=== PATIENT | male | born 1990 | race Caucasian/White ===

== ENCOUNTER 2025-06-02 10:32 | Emergency (ER) | payer BC, SELFPAY ==
[2025-06-02 10:44] VITALS: BP 130/81; PULSE 89; RESP 16; TEMP 36.8; O2SAT 100
--- NOTE | 2025-06-02 11:00 | ED.GENADULT ---
HPI - General Adult General Chief complaint: Skin/Abscess/Foreign Body Stated complaint: poison an Time Seen by Provider: 06/02/25 10:37 Source: patient Mode of arrival: ambulatory Limitations: no limitations History of Present Illness HPI narrative: Pt is a 35 y/o male presenting with c/o poison an. He reports contact with plant while helping his friend with yardwork on Saturday. He denies hx of similar rash. 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 No constitutional sx. No additional complaints. Related Data Home Medications ?Medication ?Instructions ?Recorded ?Confirmed ?Last Taken ?Type bupropion HCl 75 mg tablet mg PO 06/02/25 Unknown History testosterone cypionate 200 mg/mL mg 06/02/25 Unknown History intramuscular oil Allergies Allergy/AdvReac Type Severity Reaction Status Date / Time No Known Allergies Allergy Unverified 08/10/16 11:48 Review of Systems Review of Systems: CONSTITUTIONAL: Denies body aches, fever, chills, or sweats. EYES: Denies visual changes, redness, or discharge. ENT: Denies rhinorrhea, congestion, sore throat, or otalgia. CARDIOVASCULAR: Denies chest pain, palpitations, or edema. RESPIRATORY: Denies cough or dyspnea. GASTROINTESTINAL: Denies abdominal pain, nausea, vomiting, or diarrhea. GENITOURINARY: Denies dysuria or hematuria. SKIN: Reports rash, itching MUSCULOSKELETAL: Denies back pain, joint pain, or myalgia. NEUROLOGIC: Denies headache, numbness, tingling, or weakness. PSYCH: Denies depression or anxiety. Exam Narrative: GENERAL: Well-appearing, well-nourished, and in no acute distress. HEAD: Normocephalic, atraumatic. EYES: EOMI. No redness or drainage. Conjunctivae normal. NECK: Normal AROM. Supple. CHEST: No respiratory distress. HEART: Regular rate MUSCULOSKELETAL: No bony tenderness. EXTREMITIES: Normal range of motion. No edema. SKIN: Warm, dry. Erythematous, maculopapular eruption with scattered vesicles, some ruptured, noted to bilateral forearms, anterior aspect of L. upper chest wall, L. side of scalp. No evidence of secondary skin infection. Capillary refill normal. Normal skin turgor. NEURO: No focal deficits. Alert and oriented x3. Gait steady. PSYCH: Normal affect. No signs of depression or anxiety. Course Course Level of Care: Express Care Visit Vital Signs Vital signs: Vital Signs Temperature 98.2 F 06/02/25 10:44 Pulse Rate 89 06/02/25 10:44 Respiratory Rate 16 06/02/25 10:44 Blood Pressure 130/81 06/02/25 10:44 Pulse Oximetry 100 06/02/25 10:44 Temperature 98.2 F 06/02/25 10:44 Pulse Rate 89 06/02/25 10:44 Respiratory Rate 16 06/02/25 10:44 Blood Pressure 130/81 06/02/25 10:44 Pulse Oximetry 100 06/02/25 10:44 Medical Decision Making MDM Narrative Medical decision making narrative: Discussed elevated blood pressure readings with patient and advised daily BP monitoring and f/u with PCP if persisting. Vital Signs Vital Signs: Vital Signs Temperature 98.2 F 06/02/25 10:44 Pulse Rate 89 06/02/25 10:44 Respiratory Rate 16 06/02/25 10:44 Blood Pressure 130/81 06/02/25 10:44 Pulse Oximetry 100 06/02/25 10:44 Temperature 98.2 F 06/02/25 10:44 Pulse Rate 89 06/02/25 10:44 Respiratory Rate 16 06/02/25 10:44 Blood Pressure 130/81 06/02/25 10:44 Pulse Oximetry 100 06/02/25 10:44 Discharge Plan Discharge Clinical Impression: Elevated blood pressure reading in office without diagnosis of hypertension Contact dermatitis Qualifiers: Contact dermatitis type: unspecified Contact dermatitis trigger: non-food plants Qualified Code(s): L25.5 - Unspecified contact dermatitis due to plants, except food Patient Disposition: Home Condition: Stable Instructions: Poison An (ED) Additional Instructions: Go straight to ER should your symptoms become worse or should any new symptoms develop Patient Language: Portuguese Prescriptions: New prednisone 20 mg tablet 20 mg PO DAILY Qty: 18 0RF Rx Instructions: 3 tabs x 3 days then 2tabs x 3 days then 1 tab x 3 days No Action bupropion HCl 75 mg tablet PO testosterone cypionate 200 mg/mL oil Follow-up/Referrals: PHYSICIAN,WEB DESIGN SPECIALIST [Primary Care Provider] - 06/02/25 Time of Disposition: 11:18
[2025-06-02] MEDS: dexAMETHasone SOD PHOS INJ 10 MG/ML 1 ML VIAL IM (11:12)
== END 2025-06-02 11:22 | disposition home or self-care (01) ==
PROVIDERS: Emergency Provider Registered Nurse
DX: R03.0 Elevated blood-pressure reading, without diagnosis of hypertension (principal); L25.5 Unspecified contact dermatitis due to plants, except food
CPT/HCPCS: 96372; 99203; G0463; J1100

== ENCOUNTER 2025-06-14 10:46 | Emergency (ER) | payer BC, SELFPAY ==
[2025-06-14 10:50] VITALS: BP 129/76; PULSE 84; RESP 18; TEMP 36.4; O2SAT 100
--- NOTE | 2025-06-14 11:44 | ED_ITS ---
HPI - URI/Sore Throat General Chief Complaint: Upper Respiratory Infection Stated Complaint: Sore Throat Time Seen by Provider: 06/14/25 11:49 Source: patient, RN notes reviewed and old records reviewed Mode of arrival: ambulatory Limitations: no limitations History of Present Illness HPI Narrative: 35-year-old male presents to the [facility] with a sore, irritated throat since last night. No treatment prior to arrival Related Data Home Medications ?Medication ?Instructions ?Recorded ?Confirmed ?Last Taken ?Type testosterone cypionate 200 mg/mL mg 06/02/25 Unknown History intramuscular oil Allergies Allergy/AdvReac Type Severity Reaction Status Date / Time No Known Allergies Allergy Unverified 06/14/25 11:12 Review of Systems Review of Systems: All systems reviewed & are unremarkable except as noted in HPI and below Constitutional: Constitutional: Reports no additional constitutional complaints ENT: Reports as per HPI and Reports sore throat Cardiovascular: Cardiovascular: Reports no additional cardiovascular complaints, Denies chest pain and Denies dyspnea Respiratory: Respiratory: Reports no additional respiratory complaints, Denies chest congestion, Denies cough and Denies dyspnea Musculoskeletal: Musculoskeletal: Reports no additional musculoskeletal complaints Integumentary/Breasts: Skin/Breast: Reports system reviewed and no additional complaints, except as docu PMFSH Comments At the time of my signature, I reviewed and agree with the nursing past medical, surgical, social, and family history. There is no relevant family history pertinent to the patient complaint. Exam Const: General: cooperative, healthy appearing, comfortable, no acute distress, well developed, alert and well nourished Nutritional Appearance: well nourished Orientation/consciousness: patient oriented x3 Limitations: no limitations HENMT: Head: normal to inspection Ears: hearing grossly normal bilaterally, external ears normal, TM's normal bilaterally, EAC's normal, mastoids normal and no periauricular adenopathy Face/Nose/Sinus: Normal external nose present Mouth: Yes Normal oral and palatal mucosa present, Yes lip normal, Yes tongue normal and Yes moist mucous membranes Throat: posterior oropharynx normal, uvula midline and no uvular edema Eyes: General: appearance normal, both eyes and all related structures Alignment and Position: alignment normal Neck: Neck: normal visual inspection, full ROM, no lymphadenopathy and no meningeal signs Chest: Chest palpation & inspection: normal inspection of the chest Resp: Effort & Inspection: normal respiratory effort and able to speak in complete sentences Auscultation: clear to auscultation bilaterally, no crackles, no rales, no rhonchi and no wheezes Cardio: Rate: regular rate Skin: General skin exam: normal color and no rashes or lesions noted Neuro: General: patient oriented x3, gait normal, moves all extremities and no meningeal signs Cognition (Neuro): normal cognition Speech: normal speech Gait exam (Neuro): Normal gait present Extrem: General: normal to inspection, full ROM, capillary refill normal and normal gait Psych: Appearance: grossly normal and well kempt Mental Status: mental status grossly normal Speech and movement: Normal speech and movement present and Clear speech present Affect: normal affect Attitude: cooperative Course Course Level of Care: Express Care Visit Vital Signs Vital signs: Vital Signs Temperature 97.6 F 06/14/25 10:50 Pulse Rate 84 06/14/25 10:50 Respiratory Rate 18 06/14/25 10:50 Blood Pressure 129/76 06/14/25 10:50 Pulse Oximetry 100 06/14/25 10:50 Oxygen Delivery Room Air 06/14/25 10:50 Temperature 97.6 F 06/14/25 10:50 Pulse Rate 84 06/14/25 10:50 Respiratory Rate 18 06/14/25 10:50 Blood Pressure 129/76 06/14/25 10:50 Pulse Oximetry 100 06/14/25 10:50 Oxygen Delivery Room Air 06/14/25 10:50 Reviewed MDM - URI/Sore Throat MDM Narrative Medical decision making narrative: Patient sitting exam room. Patient is nontoxic, vitals stable. Patient presents with 1 day history of a sore throat. Strep is negative, will culture No acute findings noted on exam. Patient is appropriate for outpatient treatment with close follow-up Discharge instructions reviewed with patient, as well as provided in writing per nursing staff. The instructions also include specific and strict return/GO TO THE ER as well as f/u information. All questions have been answered, and the patient deny any further questions with discharge and discharge plan. Some parts of this dictation were generated by voice recognition software and may contain typographical and/or grammatical inaccuracies. Differential Diagnosis Differential diagnosis: Likely upper respiratory infection, otitis media, sinusitis, viral infection, bronchitis, influenza and pharyngitis Lab Data Labs: Lab Results 06/14/25 Range/Units 11:58 POC Grp A Strep Screen Negative (Negative) Reviewed Critical Care Time Critical Care Time Critical Care Time: No Discharge Plan Discharge Clinical Impression: PND (post-nasal drip) Pharyngitis Qualifiers: Pharyngitis/tonsillitis etiology: unspecified etiology Qualified Code(s): J02.9 - Acute pharyngitis, unspecified Patient Disposition: Home Condition: Stable Instructions: Antibiotic Form, Pharyngitis (ED), Postnasal Drip (DC) Additional Instructions: Your rapid strep swab was negative today at [facility]. A throat culture will be sent to the laboratory for further testing. If the test is positive, you will receive a phone call within 48 hours and an appropriate antibiotic will be initiated at that time. It is very important to treat your symptoms. Drink plenty of water, Gatorade, Pedialyte, ice pops or Jell-O. -Alternate Tylenol and Motrin per package directions for fever or pain. You can alternate every 4 hours -Antihistamine medication such as Zyrtec/Claritin/Deborah during the day can help improve symptoms. -doing daily nasal irrigations can help relieve pressure your sinuses. Things like a Neti pot -Use Flonase twice a day for 5 days then daily to help reduce the inflammation and dry up your sinuses. -You can also use Mucinex. Be sure to drink plenty of water with this medication at least 8 ounces with every dose and it is important to drink 8 to 10 glasses of water per day. Water is a natural decongestant -Eat and drink things that are easy to swallow, like tea or soup, or popsicles. -Oral rinses such as: Salt water gargles and/or may use topical anesthetic (eg. Chloraseptic spray) or lozenges to relieve dryness or throat pain). -Frequent hand washing or hand system consultant is one of the best ways to prevent spread of infection. -Using a vaporizer or humidifier at night will also help thin secretions and help with coughing up phlegm. -Follow up with primary care provider in 7-10 days if condition is not improving - For new or worsening symptoms go directly to the nearest ER Patient Language: Kyrgyz Prescriptions: No Action testosterone cypionate 200 mg/mL oil Follow-up/Referrals: PHYSICIAN,MEDICAL ANTHROPOLOGY DIRECTOR [Primary Care Provider, Internal Medicine] Stand Alone Forms: Work/School Release IP Time of Disposition: 11:55
[2025-06-14 12:04] LABS: EDSTREPNEGPOS1 Negative (Negative)
== END 2025-06-14 11:58 | disposition home or self-care (01) ==
PROVIDERS: Emergency Provider Nurse Practitioner
DX: R09.82 Postnasal drip (principal); J02.9 Acute pharyngitis, unspecified
CPT/HCPCS: 87081; 87880; 99213; G0463